=== PATIENT | female | born 1970 | race Caucasian/White ===

== ENCOUNTER 2018-08-06 16:47 | Inpatient (IN) | payer SELFPAY ==
[2018-08-06] MEDS ORDERED: NS 0.9% 1000 ML** 1,000 ML IV ONE ×2 (16:58→17:10)
--- NOTE | 2018-08-06 17:13 | ED ---
HPI Diabetic - HPI Summary HPI Summary: Patient is a 48 y/o female who presents to the ED c/o dizziness. She had two teeth pulled on 07/28/18 because they were infected, and was started on Amoxicillin 3 days ago. For the past week patient c/o nausea, FISHER, palpitations, near-syncope, room-spinning dizziness, mouth pain, throat swelling, fever, SOB, and polyuria. Patient denies any vomiting or CP. Her FISHER has now resolved. Her pain is rated a 7/10 in severity and is described as aching. Patient is a diabetic and her BG yesterday was 600. She states she doesnt check her BG and guesses the dose of Lantus that she takes. She last took Insulin today at 12: 00. Patient is a smoker. - History Of Current Complaint Chief Complaint: EDDizziness Time Seen by Provider: 08/06/18 16:57 Hx Obtained From: Patient Onset/Duration: Gradual Onset, Lasting Weeks - 1, Still Present Timing: Constant Severity Currently: Moderate - 7/10 Aggravating: Non-compliant - does not check BG, takes random amounts of Lantus Alleviating: Nothing Associated Signs & Symptoms: Fever, Nausea, Polyuria, Shortness of Breath - Allergies/Home Medications Allergies/Adverse Reactions: Allergies Allergy/AdvReac Type Severity Reaction Status Date / Time No Known Allergies Allergy Verified 08/06/18 16:48 Home Medications: Home Medications FLUoxetine CAP* [PROzac CAP*] 40 mg PO QPM 08/06/18 [History Confirmed 08/06/18] Insulin ISOPH/REG 70/30 (*) [HumuLIN 70/30 (*)] 10 units SUBCUT QAM 08/06/18 [ History Confirmed 08/06/18] Insulin ISOPH/REG 70/30 (*) [HumuLIN 70/30 (*)] 12 units SUBCUT QPM 08/06/18 [ History Confirmed 08/06/18] risperiDONE TAB* [RisperDAL*] 1 mg PO QPM 08/06/18 [History Confirmed 08/06/18] PMH/Surg Hx/FS Hx/Imm Hx Endocrine/Hematology History: Reports: Hx Diabetes Psychiatric History: Reports: Hx Anxiety, Hx Depression Infectious Disease History: No Infectious Disease History: Denies: Traveled Outside the [place] in Last 30 Days - Family History Known Family History: Positive: Other - R&NC - Social History Alcohol Use: None Hx Substance Use: No Substance Use Type: Reports: None Hx Tobacco Use: Yes Smoking Status (MU): Heavy Every Day Tobacco Smoker Review of Systems Positive: Fever Positive: Other - mouth pain, throat swelling Positive: Palpitations. Negative: Chest Pain Positive: Shortness Of Breath Positive: Nausea. Negative: Vomiting Positive: other - polyuria Neurological: Other - room-spinning dizziness Positive: Headache - resolved, Syncope - near All Other Systems Reviewed And Are Negative: Yes Physical Exam - Summary Physical Exam Summary: Appearance: Well appearing, mild pain distress Skin: warm, dry, reflects adequate perfusion Head/face: normal Eyes: EOMI, TALHA ENT: mucous membranes moist, first left upper molar blackened, left upper pre- molar and second molar pulled, pre-molar site healed, second molar site nearly healed Neck: supple, non-tender Respiratory: breath sounds present, mild expiratory wheezes Cardiovascular: RRR, pulses symmetrical Abdomen: non-tender, soft Bowel Sounds: present Musculoskeletal: normal, strength/ROM intact Neuro: normal, sensory motor intact, A&Ox3 Triage Information Reviewed: Yes Vital Signs On Initial Exam: Initial Vitals Temp Pulse Resp BP Pulse Ox 98.7 F 95 18 154/74 91 08/06/18 16:48 08/06/18 16:48 08/06/18 16:48 08/06/18 16:48 08/06/18 16:48 Vital Signs Reviewed: Yes Diagnostics - Vital Signs Vital Signs Temp Pulse Resp BP Pulse Ox 08/06/18 17:06 92 147/75 96 08/06/18 17:03 92 89 08/06/18 16:48 98.7 F 95 18 154/74 91 - Laboratory Result Diagrams: 08/06/18 17:11 08/06/18 17:11 Lab Statement: Any lab studies that have been ordered have been reviewed, and results considered in the medical decision making process. - Radiology CXR Radiology Interpretation Completed By: ED Physician Summary of Radiographic Findings: No acute disease. Pending official radiology report. - EKG 17:50 Cardiac Rate: NL - 92 bpm EKG Rhythm: Sinus Rhythm ST Segment: Non-Specific Summary of EKG Findings: Nl axis, poor R wave progression Re-Evaluation - Re-Evaluation First Eval Re-Evaluation Time: 19:00 Change: Improved Comment: Feeling a little better. O2 sats in mid-80s when ambulating. Diabetic Course/Dx - Course Course Of Treatment: Nurse's notes reviewed. Patient presents with generalized malaise and recent dental procedure. She has also had blood sugars around 600 but is poorly compliant with checking them. She does not even know her dose of insulin. Her sugar here is 305. She was given IV hydration and was feeling somewhat better. She walked to the restroom and was found to have walking O2 saturations in the low 80s. She is requiring 2 L of oxygen and 1 at baseline she wears none. Her VBG shows a PCO2 in the 60s with PO2 in the 50s. She was given steroids and breathing treatments with some improvement will be admitted for her hypoxia. - Diagnoses Differential Dx: Acute [place], Diabetic Ketoacidosis, Hyperglycemia, Hyperosmolar State, Pneumonia, Sepsis Provider Diagnoses: Hypoxia, Diabetic hypoglycemia, COPD exacerbation - Physician Notifications Discussed Care Of Patient With: Maya Rivas Time Discussed With Above Provider: 19:37 Instructed by Provider To: Admit As Inpatient - Critical Care Time Critical Care Time: 30-74 min - Critical care time is exclusive of separately billable procedures Discharge - Sign-Out/Discharge Documenting (check all that apply): Patient Departure - admit Patient Received Moderate/Deep Sedation with Procedure: No - Discharge Plan Condition: Stable Disposition: ADMITTED TO [facility] Referrals: No Primary Care Phys,NOPCP [Primary Care Provider] - - Billing Disposition and Condition Condition: STABLE Disposition: Admitted to [facility] - Attestation Statements Document Initiated by Scribe: Yes Documenting Scribe: Sonya Bolden Provider For Whom Rosanne is Documenting (Include Credential): Raf Good MD Scribe Attestation: Sonya Montero, scribed for Raf Good MD on 08/06/18 at 2127. Scribe Documentation Reviewed: Yes Provider Attestation: The documentation as recorded by the Sonya dodge accurately reflects the service I personally performed and the decisions made by me, Raf Good MD Status of Scribe Document: Viewed
[2018-08-06] MEDS ORDERED: Ondansetron INJ* 2 MG/ML VIAL IV ONE (17:14)
[2018-08-06 17:18] LABS: Hematocrit 55 % (36-46); Hemoglobin 18.2 g/dL (14.0-18.0); Mean Corpuscular HGB Conc 33 g/dL (31-36); Mean Corpuscular Hemoglobin 33 pg (27-31); Mean Corpuscular Volume 99 fL (80-94); Mean Platelet Volume 10.7 fL (7.4-10.4); Platelet Count 223 10^3/uL (150-450); Red Blood Count 5.55 10^6 /uL (4.18-5.48); Red Cell Distribution Width 13 % (10.5-15); White Blood Count 7.6 10^3/uL (3.5-10.8)
[2018-08-06 17:37] LABS: Albumin 4.2 g/dL (3.2-5.2); Albumin/Globulin Ratio 1.3 (1-3); C Reactive Protein 1.64 mg/L (<8.01); Calcium 9.5 mg/dL (8.6-10.3); EGFR African American 129.4 (>60); EGFR Non-African American 106.9 (>60); Globulin 3.2 g/dL (2-4); Potassium 4.7 mmol/L (3.5-5.0); Total Protein 7.4 g/dL (6.4-8.9)
[2018-08-06 17:40] LABS: ABS Basophils 0 10^3/ul (0-0.2); ABS Eosinophils 0.1 10^3/ul (0-0.6); ABS Lymphocytes 1.1 10^3/ul (1.0-4.8); ABS Monocytes 0.4 10^3/ul (0-0.8); ABS Neutrophils 5.9 10^3/ul (1.5-7.7); ABS Nucleated RBC 0 10^3/ul; Eosinophil % 1.6 %; Nucleated Red Blood Cells % 0
[2018-08-06] MEDS ORDERED: methylPREDNISolone 125 MG* 2 ML VIAL IV ONE (19:26)
[2018-08-06] MEDS ORDERED: Albuterol/Ipratropium NEB.SOL* Albuterol 2.5 MG/Ipratropium 0.5 MG 3 ML INH ONE (19:26)
[2018-08-06 19:38] LABS: Urine Appearance Clear; Urine Bacteria Absent (Absent); Urine Bilirubin Negative (Negative); Urine Blood 1+ (Negative); Urine Color Yellow; Urine Glucose 3+(>=500 mg/dL) (Negative); Urine Ketones Negative (Negative); Urine Nitrite Negative (Negative); Urine Protein Negative (Negative); Urine Red Blood Cell Trace(0-2/hpf) (Absent); Urine Specific Gravity 1.003 (1.010-1.030); Urine Squamous Epithelial Cell Present (Absent); Urine Urobilinogen Negative (Negative); Urine White Blood Cell Trace(0-5/hpf) (Absent)
[2018-08-06] MEDS ORDERED: Acetaminophen TAB* 325 MG PO PRN (20:25)
[2018-08-06] MEDS ORDERED: Al Hydrox/Mg Hydrox/Simet LIQ* 30 ML UDC PO PRN (20:25)
[2018-08-06] MEDS ORDERED: Albuterol/Ipratropium NEB.SOL* Albuterol 2.5 MG/Ipratropium 0.5 MG 3 ML INH PRN (20:25)
[2018-08-06] MEDS ORDERED: Ondansetron INJ* 2 MG/ML VIAL IV PRN (20:25)
[2018-08-06] MEDS ORDERED: Albuterol HFA INHALER* 8 gm MDI INH PRN (20:28)
[2018-08-06] MEDS ORDERED: Nicotine Inhaler* 10 MG AMP INH PRN (20:45)
[2018-08-06] MEDS: Mometasone/Formoter 200/5 MDI INH SCH (21:00)
[2018-08-06] MEDS ORDERED: Mouth Piece, Nicotine* 1 EACH CARTRIDGE INH ONE (22:00)
[2018-08-06] MEDS: NS 0.9% 1000 ML** 1,000 ML IV SCH (22:28)
--- NOTE | 2018-08-06 22:35 | HP ---
CC: [facility] * HISTORY AND PHYSICAL: DATE OF ADMISSION: 08/06/18 TIME OF EVALUATION: 1999. PRIMARY CARE PHYSICIAN: [facility] in [place]. CHIEF COMPLAINT: Concern for septic shock. HISTORY OF PRESENT ILLNESS: This is a 48-year-old female with a past medical history of diabetes and depression who presented to the emergency room with concern for sepsis. The patient states that she had her teeth pulled on 07/28/18, two of her teeth pulled that were infected and she did not get started on antibiotics until 08/03/18. She has been started on amoxicillin every 6 hours for 7 days. She states her mouth does feel about the same, maybe slightly better. She also noticed that her sugar was elevated, greater than 600 yesterday, and she was feeling warm. No documented temperature. The states she is also menopausal, so she does get periods where she does feel warm. She has been nauseated. She had 5 to 6 episodes of diarrhea today. No abdominal pain. No rash. No chest pain. She has a new productive cough. She states she is always short of breath. She has been short of breath for years. It has not been worse. She does smoke a pack per day for the past 36 years. She has never used inhalers or nebulizers in the past, never required oxygen or seen a plant attendant. In the emergency room , the patient had labs, imaging. She was given 2 L of fluids, 4 mg of Zofran, Solu-Medrol 125, and 2 DuoNebs and was referred to the hospitalist service for further evaluation when she was noted to have oxygen saturation of 87% on room air. PAST MEDICAL HISTORY: 1. Depression. 2. Diabetes, on insulin. 3. Tobacco use. MEDICATIONS: 1. Prozac 40 mg daily. 2. Risperdal 1 mg p.o. in the evening. 3. Humulin 12 units in the evening, 10 units in the morning. 4. Amoxicillin 500 mg every 6 hours for 7 days, started on 08/03/18, completed on 08/09/18. ALLERGIES: No known drug allergies. FAMILY HISTORY: Her mother is alive with heart condition. Her father is at age 65 from bladder cancer. SOCIAL HISTORY: The patient has been smoking a pack per day for the past 36 years. No alcohol use. She lives at home with her and her son. Her is her healthcare proxy. She is unemployed. Code status, full code. REVIEW OF SYSTEMS: A 14-point review of systems is as mentioned in the HPI; otherwise, negative. PHYSICAL EXAMINATION GENERAL: In no acute distress, older than stated age. Her and her son are at the bedside. VITAL SIGNS: T-max 98.7, pulse rate 87, respiratory rate 14, oxygen saturation 96% on 2 L, blood pressure 133/80. HEENT: Head: Normocephalic. She does have some eyelid asymmetry. Pupils are equal and reactive. Mildly injected conjunctivae. Oropharynx: Mucous membranes are moist. No erythema or exudate. She does have poor dentition with no significant erythema or edema around the sites where her teeth are pulled. NECK: Supple. No lymphadenopathy. RESPIRATORY: Diminished breath sounds. Prolonged expiratory phase. Scattered faint expiratory wheezing. CARDIAC: Regular rate and rhythm. Soft systolic murmur heard throughout. ABDOMEN: Soft, nontender, nondistended. EXTREMITIES: No clubbing, cyanosis, or edema; +1 DPs. NEUROLOGIC: Alert and oriented x3. No gross focal neurologic deficits. DIAGNOSTIC STUDIES/LAB DATA: Laboratory Data: White count 7.6, hemoglobin 18.2, hematocrit 55, platelets 223. VBG, pH 7.39. Sodium 131, potassium 4.7, chloride 96, bicarb 30, BUN 10, creatinine 0.77, glucose 300. Lactic 1.1. Troponin is 0. CRP is 1.64. UA shows +1 blood, squamous cells present, +3 glucose, no ketones. Chest x-ray shows flattened diaphragm with no significant infiltrate. EKG is normal sinus rhythm with a rate of 92. ASSESSMENT AND PLAN: This is a 48-year-old female with past medical history of tobacco abuse and diabetes, who recently had her teeth pulled, who presented for concern for septic shock. 1. Hypoxia. Assessment: The patient to be clear is not in septic shock. There does not seem to be any significant infection from her teeth pulling, but she is noted to be hypoxic. I suspect this is chronic and she has been hypoxic for years due to her tobacco abuse and underlying undiagnosed chronic obstructive pulmonary disease. We discussed that she needs to start an inhaler regimen and follow up with an outpatient plant attendant. I do not think this is an exacerbation and does not appear to have a secondary infection. Plan: We will admit her overnight for observation as she may need to be discharged home with oxygen. Start her on albuterol nebs, albuterol inhaler, and Dulera and have Respiratory do inhaler teaching for her and she will need oxygen testing prior to discharge. Recommend outpatient followup with Dr. Best. 2. Elevated hemoglobin and hematocrit. Assessment: I do not have labs to compare to, to see if this is underlying polycythemia. This could be hemoconcentrated. We will continue her on fluids and repeat labs in the morning to rule out polycythemia. 3. Diabetes. Assessment: Elevated sugar. On arrival, she does not have any presentation of hyperglycemic hyperosmolar nonketotic coma. We will continue her Humulin and lispro to cover her and check hemoglobin A1c. 4. Recent dental infection. There do not seem to be significant findings of infection. We will continue her on amoxicillin as prescribed. 5. Depression. Continue her Prozac and Risperdal. 6. Tobacco use. We will place her on a nicotine inhaler. 7. FEN. We will place her on a diabetic diet and with gentle IV fluids. 8. DVT prophylaxis. The patient scores moderate risk. We will place her on heparin subcu t.i.d. 9. Code status. Full code. ATIENT TIME: Greater than 45 minutes was spent doing the history and physical, more than half the time spent in direct patient contact. [id number]/CPS #: [id number] KATELYNN
[2018-08-06] MEDS: Insulin LISPRO* 1 UNITS UNIT SUBCUT SCH (23:19)
[2018-08-06] MEDS: risperiDONE TAB* 1 MG PO SCH (23:19)
[2018-08-06] MEDS: Amoxicillin PO (*) 500 MG CAP PO SCH (23:19)
[2018-08-06] MEDS: Heparin VIAL(*) 5000 UNITS/ML VIAL (FIVE THOUSAND) SUBCUT SCH (23:20)
[2018-08-06] MEDS: Insulin ISOPH/REG 70/30 (*) 1 UNITS UNIT SUBCUT SCH (23:20)
[2018-08-06] MEDS: FLUoxetine CAP* 20 MG PO SCH (23:24)
[2018-08-07] MEDS: Heparin VIAL(*) 5000 UNITS/ML VIAL (FIVE THOUSAND) SUBCUT SCH ×2 (05:46→14:21)
[2018-08-07 07:07] LABS: Hematocrit 47 % (33-41); Mean Corpuscular HGB Conc 34 g/dL (31-36); Mean Corpuscular Hemoglobin 33 pg (27-31); Mean Corpuscular Volume 98 fL (80-97); Mean Platelet Volume 10.9 fL (7.4-10.4); Platelet Count 190 10^3/uL (150-450); Red Blood Count 4.81 10^6 /uL (3.70-4.87); Red Cell Distribution Width 13 % (10.5-15); White Blood Count 7.9 10^3/uL (3.5-10.8)
[2018-08-07 07:31] LABS: BUN/Creatinine Ratio 14.5 (8-20); Calcium 8.4 mg/dL (8.6-10.3); EGFR African American 141.6 (>60); Potassium 4.7 mmol/L (3.5-5.0)
[2018-08-07 07:51] LABS: ABS Basophils 0 10^3/ul (0-0.2); ABS Eosinophils 0 10^3/ul (0-0.6); ABS Lymphocytes 0.7 10^3/ul (1.0-4.8); ABS Monocytes 0.1 10^3/ul (0-0.8); ABS Nucleated RBC 0 10^3/ul; Eosinophil % 0 %; Nucleated Red Blood Cells % 0
[2018-08-07] MEDS: Mometasone/Formoter 200/5 MDI INH SCH ×2 (08:04→20:17)
[2018-08-07] MEDS: Amoxicillin PO (*) 500 MG CAP PO SCH ×4 (09:39→21:58)
[2018-08-07] MEDS: NS 0.9% 1000 ML** 1,000 ML IV SCH (09:39)
[2018-08-07] MEDS: Insulin LISPRO* 1 UNITS UNIT SUBCUT SCH ×3 (09:39→18:40)
[2018-08-07] MEDS: Insulin ISOPH/REG 70/30 (*) 1 UNITS UNIT SUBCUT SCH ×2 (09:40→21:59)
[2018-08-07] MEDS ORDERED: clonazePAM TAB(*) 0.5 MG PO ONE (14:24)
[2018-08-07] MEDS ORDERED: FLUoxetine CAP* 20 MG PO SCH (18:00)
[2018-08-07] MEDS: FLUoxetine CAP* 20 MG PO SCH (18:41)
[2018-08-07] MEDS: risperiDONE TAB* 1 MG PO SCH (18:41)
--- NOTE | 2018-08-07 21:13 | PN ---
Subjective Interval History: Admitted last night. Breathing significantly improved from before. When asked about her baseline of health, it appears that patient has been experiencing dyspnea and fatigue for quite some time. Objective Active Medications: Acetaminophen (Tylenol Tab*) 650 mg PO Q4H PRN PRN Reason: FEVER/PAIN Al Hydrox/Mg Hydrox/Simethicone (Maalox Plus*) 30 ml PO Q6H PRN PRN Reason: INDIGESTION Albuterol (Ventolin Hfa Inhaler*) 2 puff INH Q4H PRN PRN Reason: SOB/WHEEZING Amoxicillin (Amoxicillin Po (*)) 500 mg PO QID [facility] Last Admin: 08/07/18 18:41 Dose: 500 mg Device (Tiotropium Inhaler Device*) 1 each INH .USE w/ SPIRIVA CAPS [facility] Dextrose (D50w Syringe 50 Ml*) 12.5 gm IV PUSH .FOR FS < 60 - SS PRN PRN Reason: FS < 60 Enoxaparin Sodium (Lovenox(*)) 40 mg SUBCUT Q24H [facility] Fluoxetine HCl (Prozac Cap*) 40 mg PO QPM [facility] Last Admin: 08/07/18 18:41 Dose: 40 mg Insulin Human Isoph/Insulin Regular (Humulin 70/30 (*)) 10 units SUBCUT 0800 [facility] Last Admin: 08/07/18 09:40 Dose: 10 units Insulin Human Isoph/Insulin Regular (Humulin 70/30 (*)) 12 units SUBCUT 2100 [facility] Last Admin: 08/06/18 23:20 Dose: 12 units Insulin Human Lispro (Humalog*) 0 units SUBCUT AC [facility]; Protocol Last Admin: 08/07/18 18:40 Dose: Not Given Nicotine (Nicotine Inhaler*) 10 mg INH Q2H PRN PRN Reason: CRAVING Last Admin: 08/06/18 23:21 Dose: 10 mg Ondansetron HCl (Zofran Inj*) 4 mg IV Q4H PRN PRN Reason: NAUSEA/VOMITING Risperidone (Risperdal*) 1 mg PO QPM [facility] Last Admin: 08/07/18 18:41 Dose: 1 mg Tiotropium [place] (Spiriva Cap.Inh*) 1 cap INH DAILY [facility] Vital Signs - 8 hr 08/07/18 08/07/18 08/07/18 13:13 15:18 19:41 Temperature 98.4 F 97.9 F 98.1 F Pulse Rate 89 94 87 Respiratory 24 20 22 Rate Blood Pressure 124/52 129/55 129/56 (mmHg) O2 Sat by Pulse 91 94 93 Oximetry 08/07/18 08/07/18 19:48 20:20 Temperature Pulse Rate 93 Respiratory 22 14 Rate Blood Pressure (mmHg) O2 Sat by Pulse 93 Oximetry Oxygen Devices in Use Now: Nasal Cannula Appearance: anxious, tearful Ears/Nose/Mouth/Throat: Mucous Membranes Moist Respiratory: - - mild expiratory wheeze diffusely, no rhonchi/crackles Cardiovascular: RRR Abdominal: NL Sounds; No Tenderness; No Distention Extremities: No Edema Result Diagrams: 08/07/18 06:50 08/07/18 06:50 Microbiology and Other Data: Microbiology 08/06/18 17:25 Aerobic Blood Culture - Preliminary Blood Venous No Growth Day 1 Anaerobic Blood Culture - Preliminary No Growth Day 1 08/06/18 17:10 Aerobic Blood Culture - Preliminary Blood Venous No Growth Day 1 Anaerobic Blood Culture - Preliminary No Growth Day 1 08/06/18 16:58 Urine Culture - Final Urine No Growth (<1,000 CFU/mL) Assess/Plan/Problems-Billing Assessment: 48W with significant smoking history, type 1 diabetes on insulin, and depression , presents with chronic dyspnea and cough. Likely with undiagnosed COPD, now on treatment and better, but pending safest discharge plan given that patient is uninsured. - Patient Problems (1) COPD (chronic obstructive pulmonary disease) Comment: Likely with severe symptoms but undiagnosed for years due to avoiding healthcare given uninsured. - can transition to albuterol inhaler prn - teaching by RT - switch duonebs to tiotropium inhaler - wean O2 if able - pending insurance vs meds covered by [employer] cheap meds list - goal SaO2 is 88-92% (2) Tobacco abuse Comment: - pt states she'll never smoke again, declines NRT - educated family (3) Type 1 diabetes Comment: - cont basal insulin with sliding scale (4) Depression Comment: - cont home SSRI and risperidone - s/p 1 dose of benzo given significant anxiety in hospital (5) DVT prophylaxis Comment: switch to lovenox Status and Disposition: Inpatient while requiring oxygen. If pt to go home on O2, will have to find means of covering cost.
[2018-08-07] MEDS ORDERED: Spiriva Inhaler DEVICE* 1 EACH DEVICE INH SCH (22:00)
[2018-08-07] MEDS: Enoxaparin(*) 40 MG/0.4 ML SYR SUBCUT SCH (22:57)
[2018-08-08] MEDS: Tiotropium CAP.INH* CAP.INH/18 MCG (USE ORDER SET !) INH SCH (08:16)
[2018-08-08] MEDS: Insulin LISPRO* 1 UNITS UNIT SUBCUT SCH ×5 (09:20→22:00)
[2018-08-08] MEDS: Insulin ISOPH/REG 70/30 (*) 1 UNITS UNIT SUBCUT SCH (09:20)
[2018-08-08] MEDS: Amoxicillin PO (*) 500 MG CAP PO SCH ×4 (09:21→23:01)
[2018-08-08] MEDS ORDERED: NS 0.9% 1000 ML** 1,000 ML IV ONE (12:44)
[2018-08-08] MEDS ORDERED: Insulin LISPRO* 1 UNITS UNIT SUBCUT ONE ×2 (12:44→13:32)
--- NOTE | 2018-08-08 16:17 | PN ---
Subjective Interval History: Issues with glucose control today - required extra doses of short acting insulin a 1 L IVF. Pt reports feeling better. She learned how to use inhalers today from RT. Still unable to wean O2 at rest. Waiting to walk with RN for ambulatory O2. Yesterday maintained 89% on 2L while walking. Pt nervous and asking if she needs to get rid of her cats for her breathing. Discussed that COPD is not allergy mediated and that cats are fine. Humidity might be an issue - she nods and reports she mostly has a hard time with hot showers. Objective Active Medications: Albuterol (Ventolin Hfa Inhaler*) 2 puff INH Q4H PRN PRN Reason: SOB/WHEEZING Last Admin: 08/08/18 08:16 Dose: 2 puff Amoxicillin (Amoxicillin Po (*)) 500 mg PO QID [facility] Device (Tiotropium Inhaler Device*) 1 each INH .USE w/ SPIRIVA CAPS [facility] Dextrose (D50w Syringe 50 Ml*) 12.5 gm IV PUSH .FOR FS < 60 - SS PRN PRN Reason: FS < 60 Enoxaparin Sodium (Lovenox(*)) 40 mg SUBCUT Q24H [facility] Last Admin: 08/07/18 22:57 Dose: 40 mg Fluoxetine HCl (Prozac Cap*) 40 mg PO QPM [facility] Last Admin: 08/07/18 18:41 Dose: 40 mg Insulin Glargine (Lantus(*)) 20 units SUBCUT BEDTIME [facility] Insulin Human Lispro (Humalog*) 0 units SUBCUT AC [facility]; Protocol Insulin Human Lispro (Humalog*) 0 units SUBCUT ACHS [facility]; Protocol Nicotine (Nicotine Inhaler*) 10 mg INH Q2H PRN PRN Reason: CRAVING Last Admin: 08/06/18 23:21 Dose: 10 mg Risperidone (Risperdal*) 1 mg PO QPM [facility] Last Admin: 08/07/18 18:41 Dose: 1 mg Tiotropium [place] (Spiriva Cap.Inh*) 1 cap INH DAILY [facility] Last Admin: 08/08/18 08:16 Dose: 1 cap Vital Signs - 8 hr 08/08/18 08/08/18 08:21 11:14 Temperature 97.3 F Pulse Rate 83 79 Respiratory 16 20 Rate Blood Pressure 149/66 (mmHg) O2 Sat by Pulse 93 94 Oximetry Oxygen Devices in Use Now: Nasal Cannula - 1L Appearance: anxious, thin Ears/Nose/Mouth/Throat: Clear Oropharnyx Respiratory: Clear to Auscultation Cardiovascular: RRR Abdominal: NL Sounds; No Tenderness; No Distention, No Hepatosplenomegaly Extremities: No Edema Result Diagrams: 08/07/18 06:50 08/07/18 06:50 Assess/Plan/Problems-Billing 48W with significant smoking history, type 1 diabetes on insulin, and depression , presents with chronic dyspnea and cough. Likely with undiagnosed COPD, now on treatment and better, but pending safest discharge plan given that patient is uninsured. - Patient Problems (1) COPD (chronic obstructive pulmonary disease) Comment: Likely with severe symptoms but undiagnosed for years due to avoiding healthcare given uninsured. Unfortunately, if pt is unable to acquire insurance , medical therapies are very limited for COPD - see below: - while admitted, Spiriva daily with albuterol MDI prn, teaching done by RT - seems an albuterol inhaler is approximately $30 (if using coupon from [employer]) - only albuterol tablets are covered by [employer] $4 list, which is not preferred therapy - the only LAMA/anticholinergic inhaled medication on [employer] list is ipratropium nebulizer, so likely rx on discharge but is not ideal given frequent dosing and not portable (Incruse Ellipta and Spiriva are hundreds of dollars per inhaler) - wean O2 if able, goal SaO2 is 88-92% - pending insurance vs meds covered by [employer] cheap meds list (2) Tobacco abuse Comment: - pt states she'll never smoke again, declines NRT - educated family (3) Type 1 diabetes Comment: Unable to acquire affordable insulin given recent issues with insulin market/regulation - therefore patient has been stretching her home insulin vial. Also, pt was on 70/30, which is not ideal for type 1 diabetes. Ideally should be on basal/prandial or pump (cost). - cont basal insulin with sliding scale - low carb diet (4) Depression Comment: - cont home SSRI and risperidone - s/p 1 dose of benzo given significant anxiety in hospital (5) DVT prophylaxis Comment: switch to lovenox Status and Disposition: Inpatient while requiring oxygen. If pt to go home on O2, will have to find means of covering cost.
[2018-08-08] MEDS: risperiDONE TAB* 1 MG PO SCH (17:49)
[2018-08-08] MEDS: FLUoxetine CAP* 20 MG PO SCH (17:49)
[2018-08-08] MEDS ORDERED: Insulin GLARGINE(*) 1 UNITS UNIT SUBCUT SCH ×2 (21:00→23:00)
[2018-08-08] MEDS: Dextrose 50% Syringe 50 ML* 25 GM/50 ML SYRINGE IV PUSH PRN (22:05)
[2018-08-08] MEDS: Enoxaparin(*) 40 MG/0.4 ML SYR SUBCUT SCH (23:01)
[2018-08-09] MEDS: Tiotropium CAP.INH* CAP.INH/18 MCG (USE ORDER SET !) INH SCH (08:12)
[2018-08-09] MEDS: Amoxicillin PO (*) 500 MG CAP PO SCH ×4 (09:11→21:03)
[2018-08-09] MEDS: Insulin LISPRO* 1 UNITS UNIT SUBCUT SCH ×7 (09:11→20:55)
--- NOTE | 2018-08-09 09:55 | PN ---
Subjective Date of Service: 08/09/18 Interval History: HOSPITALIST PROGRESS NOTE Patient seen and examined at bedside. Care reviewed and d/w Radha Shi RN. She offers no complaints at this time, states her breathing is close to her baseline, despite still requiring supplemental O2. As per RN note: "Pt O2 tested ambulating and at rest, results: 84% sat ambulating on RA, 91% sat ambulating on 4L O2, 93% sat at rest on RA, 97% sat at rest on 1L O2 via NC". Family History: Unchanged from Admission Social History: Unchanged from Admission Past Medical History: Unchanged from Admission Objective Active Medications: Albuterol (Ventolin Hfa Inhaler*) 2 puff INH Q4H PRN PRN Reason: SOB/WHEEZING Last Admin: 08/08/18 08:16 Dose: 2 puff Amoxicillin (Amoxicillin Po (*)) 500 mg PO QID [facility] Last Admin: 08/09/18 09:11 Dose: 500 mg Device (Tiotropium Inhaler Device*) 1 each INH .USE w/ SPIRIVA CAPS [facility] Dextrose (D50w Syringe 50 Ml*) 12.5 gm IV PUSH .FOR FS < 60 - SS PRN PRN Reason: FS < 60 Last Admin: 08/08/18 22:05 Dose: 12.5 gm Enoxaparin Sodium (Lovenox(*)) 40 mg SUBCUT Q24H [facility] Last Admin: 08/08/18 23:01 Dose: 40 mg Fluoxetine HCl (Prozac Cap*) 40 mg PO QPM [facility] Last Admin: 08/08/18 17:49 Dose: 40 mg Insulin Glargine (Lantus(*)) 15 units SUBCUT BEDTIME [facility] Last Admin: 08/08/18 23:01 Dose: 15 units Insulin Human Lispro (Humalog*) 0 units SUBCUT AC [facility]; Protocol Last Admin: 08/09/18 09:11 Dose: 3 units Insulin Human Lispro (Humalog*) 0 units SUBCUT ACHS [facility]; Protocol Last Admin: 08/09/18 09:11 Dose: 1 unit Nicotine (Nicotine Inhaler*) 10 mg INH Q2H PRN PRN Reason: CRAVING Last Admin: 08/06/18 23:21 Dose: 10 mg Risperidone (Risperdal*) 1 mg PO QPM [facility] Last Admin: 08/08/18 17:49 Dose: 1 mg Tiotropium [place] (Spiriva Cap.Inh*) 1 cap INH DAILY [facility] Last Admin: 08/09/18 08:12 Dose: 1 cap Vital Signs - 8 hr 08/09/18 08/09/18 08/09/18 03:45 03:55 08:15 Temperature 98.4 F 98.4 F Pulse Rate 80 80 81 Respiratory 16 16 16 Rate Blood Pressure 139/64 139/64 (mmHg) O2 Sat by Pulse 96 96 93 Oximetry Oxygen Devices in Use Now: Nasal Cannula Appearance: Middle aged lady sitting up in bed in NAD. Eyes: No Scleral Icterus Ears/Nose/Mouth/Throat: Mucous Membranes Moist Neck: Trachea Midline Respiratory: Symmetrical Chest Expansion and Respiratory Effort, Clear to Auscultation - diminished Cardiovascular: RRR - Normal S1 and S2 Abdominal: NL Sounds; No Tenderness; No Distention Extremities: No Edema, - - No calf tenderness Neurological: Alert and Oriented x 3, NL Muscle Strength and Tone Result Diagrams: 08/07/18 06:50 08/07/18 06:50 Assess/Plan/Problems-Billing Assessment: Mrs Verma is a 48yo F with significant smoking history, type 1 diabetes on insulin, and depression, presents with chronic dyspnea and cough. Likely with undiagnosed COPD, now on treatment and better, but pending safest discharge plan given that patient is uninsured and will require supplemental O2. - Patient Problems (1) COPD (chronic obstructive pulmonary disease) Comment: - Likely with severe symptoms but undiagnosed for years due to avoiding healthcare she's uninsured. - Will talk to CM/SW again about Medicaid application. - Continue bronchodilators. (2) Hypoxemic respiratory failure, chronic Comment: - Likely chronic, as patient has had respiratory issues for some time and feels close to her baseline now, despite supplemental O2 requirements. (3) Type 1 diabetes Comment: - Unable to afford insulin - has been stretching her home insulin vial. - Continue Lantus and Lispro. (4) Depression Comment: - Continue Fluoxetine and Risperidone. (5) DVT prophylaxis Comment: - Lovenox. (6) Full code status Status and Disposition: Inpatient while requiring oxygen. If pt to go home on O2, will have to find means of covering cost.
[2018-08-09] MEDS: risperiDONE TAB* 1 MG PO SCH (17:50)
[2018-08-09] MEDS: FLUoxetine CAP* 20 MG PO SCH (17:50)
[2018-08-09] MEDS: Dextrose 50% Syringe 50 ML* 25 GM/50 ML SYRINGE IV PUSH PRN (20:04)
--- NOTE | 2018-08-09 20:21 | PN ---
Progress Note - Progress Note Date of Service: 08/09/18 Note: Event Note: CAT call due to hypoglycemia. Patient called out she was feeling low, had FS 17. She received D50 1 amp IV and some OJ by mouth prior to arrival. Last night FS was 40 around 10PM, Lantus dose decreased from 20 to 15. This evening had 5 units corrective humalog at dinner, nothing for carb counting. Patient diaphoretic, VSS. She can converse, still feels terrible. Repeat FS 10 minutes later 279. Will reduce evening lantus further, and reduce dose of corrective insulin. Will ask Dr. Caldera to see her tomorrow.
[2018-08-09] MEDS: Insulin GLARGINE(*) 1 UNITS UNIT SUBCUT SCH (21:03)
[2018-08-09] MEDS: Enoxaparin(*) 40 MG/0.4 ML SYR SUBCUT SCH (22:01)
[2018-08-10] MEDS: Insulin LISPRO* 1 UNITS UNIT SUBCUT SCH ×7 (07:44→20:09)
[2018-08-10] MEDS: Tiotropium CAP.INH* CAP.INH/18 MCG (USE ORDER SET !) INH SCH (07:44)
[2018-08-10] MEDS: Amoxicillin PO (*) 500 MG CAP PO SCH ×4 (09:33→19:58)
--- NOTE | 2018-08-10 09:47 | PN ---
Subjective Date of Service: 08/10/18 Interval History: HOSPITALIST PROGRESS NOTE Patient seen and examined at bedside. Care reviewed and d/w Darryl Michel RN. She was hypoglycemia last night, but otherwise feels ok. Breathing is close to baseline. Family History: Unchanged from Admission Social History: Unchanged from Admission Past Medical History: Unchanged from Admission Objective Active Medications: Albuterol (Ventolin Hfa Inhaler*) 2 puff INH Q4H PRN PRN Reason: SOB/WHEEZING Last Admin: 08/08/18 08:16 Dose: 2 puff Amoxicillin (Amoxicillin Po (*)) 500 mg PO QID [facility] Last Admin: 08/10/18 09:33 Dose: 500 mg Device (Tiotropium Inhaler Device*) 1 each INH .USE w/ SPIRIVA CAPS [facility] Dextrose (D50w Syringe 50 Ml*) 12.5 gm IV PUSH .FOR FS < 60 - SS PRN PRN Reason: FS < 60 Last Admin: 08/09/18 20:04 Dose: 12.5 gm Enoxaparin Sodium (Lovenox(*)) 40 mg SUBCUT Q24H [facility] Last Admin: 08/09/18 22:01 Dose: 40 mg Fluoxetine HCl (Prozac Cap*) 40 mg PO QPM [facility] Last Admin: 08/09/18 17:50 Dose: 40 mg Insulin Glargine (Lantus(*)) 10 units SUBCUT BEDTIME [facility] Last Admin: 08/09/18 21:03 Dose: 10 units Insulin Human Lispro (Humalog*) 0 units SUBCUT ACHS [facility]; Protocol Last Admin: 08/10/18 07:44 Dose: Not Given Insulin Human Lispro (Humalog*) 0 units SUBCUT AC [facility]; Protocol Last Admin: 08/10/18 09:34 Dose: 1 unit Nicotine (Nicotine Inhaler*) 10 mg INH Q2H PRN PRN Reason: CRAVING Last Admin: 08/06/18 23:21 Dose: 10 mg Risperidone (Risperdal*) 1 mg PO QPM [facility] Last Admin: 08/09/18 17:50 Dose: 1 mg Tiotropium [place] (Spiriva Cap.Inh*) 1 cap INH DAILY [facility] Last Admin: 08/10/18 07:44 Dose: 1 cap Vital Signs - 8 hr 08/10/18 08/10/18 08/10/18 03:25 07:27 07:36 Temperature 98 F 97.7 F 97.7 F Pulse Rate 84 81 81 Respiratory 16 16 16 Rate Blood Pressure 155/66 121/57 121/57 (mmHg) O2 Sat by Pulse 95 96 95 Oximetry 08/10/18 08/10/18 07:45 08:40 Temperature Pulse Rate 80 Respiratory 14 14 Rate Blood Pressure (mmHg) O2 Sat by Pulse 95 Oximetry Oxygen Devices in Use Now: Nasal Cannula Appearance: Pleasant middle aged lady sitting up in bed in NAD. Eyes: No Scleral Icterus Ears/Nose/Mouth/Throat: Mucous Membranes Moist Neck: Trachea Midline Respiratory: Symmetrical Chest Expansion and Respiratory Effort, Clear to Auscultation - diminished Cardiovascular: RRR - Normal S1 and S2 Neurological: Alert and Oriented x 3, NL Muscle Strength and Tone Result Diagrams: 08/07/18 06:50 08/07/18 06:50 Assess/Plan/Problems-Billing Assessment: Mrs Verma is a 48yo F with significant smoking history, type 1 diabetes on insulin, and depression, presents with chronic dyspnea and cough. Likely with undiagnosed COPD, now on treatment and better, but pending safest discharge plan given that patient is uninsured and will require supplemental O2. - Patient Problems (1) COPD (chronic obstructive pulmonary disease) Comment: - Likely with severe symptoms but undiagnosed for years due to avoiding healthcare as she's uninsured. - Will talk to CM/SW again about Medicaid application. - Continue bronchodilators. (2) Hypoxemic respiratory failure, chronic Comment: - Likely chronic, as patient has had respiratory issues for some time and feels close to her baseline now, despite supplemental O2 requirements. (3) Type 1 diabetes Comment: - Unable to afford insulin - has been stretching her home insulin vial. - Continue Lantus and Lispro - will decrease both doses and request Endocrinology consultation. (4) Depression Comment: - Continue Fluoxetine and Risperidone. (5) DVT prophylaxis Comment: - Lovenox. (6) Full code status Status and Disposition: Inpatient while requiring oxygen. If pt to go home on O2, will have to find means of covering cost.
[2018-08-10] MEDS: risperiDONE TAB* 1 MG PO SCH (17:49)
[2018-08-10] MEDS: FLUoxetine CAP* 20 MG PO SCH (17:49)
[2018-08-10] MEDS: Insulin GLARGINE(*) 1 UNITS UNIT SUBCUT SCH (20:00)
[2018-08-10] MEDS: Enoxaparin(*) 40 MG/0.4 ML SYR SUBCUT SCH (21:51)
[2018-08-11] MEDS: Tiotropium CAP.INH* CAP.INH/18 MCG (USE ORDER SET !) INH SCH (07:48)
--- NOTE | 2018-08-11 07:59 | CONSULT ---
Consult Consult: [facility] Inpatient Consult Note Date of Consult: 08/11/18 Reason for Consult: diabetes Reason for Admission: hypoxia ASSESSMENT: 48 yo F with T1DM, now admitted for severe COPD and acute hypoxia. Her weight-based TDD insulin requirement is approximately 0.5 units/kg/day for a total of 25 units per day. She has been unable to afford insulin analogues and has been using this amount in the form of 70/30 insulin with some success, having achieved an A1c = 8.1% most recently. Her lows this admission are due to excessive correction insulin given in the hours before onset of hypoglycemia. Highs have also occurred this admission when insulin was held. This pattern is typical of insulin-deficient type 1 diabetes. PLAN: - INCREASE glargine to 12 units once daily - START lispro 4 units with meals - hold if BG <70 - may give after a meal - CHANGE lispro sliding scale to - BG 151-200 -- 1 unit - BG 201-250 -- 2 units - BG 251-300 -- 3 units - BG 301-350 -- 4 units - BG 351-400 -- 5 units - BG >400 -- 6 units and call endocrine on page endocrine on-call - Patient may be discharged on above regimen - if patient cannot afford above regimen, Novolin 70/30 12 units BID is an alternative regimen - Follow-up with endocrinology at [facility] in [place] in 3-4 weeks SUBJECTIVE: History of Present Illness: See admission note for details. 48 you with chronic dyspnea presumably secondary to tobacco-related COPD, now admitted with fatigue , worsening dyspnea and concern for systemic infection. She was hypoxic on admission (87% on RA) and has had difficulty maintain O2 sat >94% despite oxygen supplement since then. She was diagnosed with T1DM at age 7 and has been on various forms of insulin replacement since then. No hospitalizations for DKA in many years. 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 Past Medical History: - Mood disorder - Type 1 diabetes - Tobacco use - Presumed COPD Medications Prior to Admission: FLUoxetine CAP* [Prozac CAP*] 40 mg PO QPM 08/06/18 [History Confirmed 08/06/18] Insulin ISOPH/REG 70/30 (*) [HumuLIN 70/30 (*)] 10 units SUBCUT QAM 08/06/18 [ History Confirmed 08/06/18] Insulin ISOPH/REG 70/30 (*) [HumuLIN 70/30 (*)] 12 units SUBCUT QPM 08/06/18 [ History Confirmed 08/06/18] risperiDONE TAB* [Risperdal*] 1 mg PO QPM 08/06/18 [History Confirmed 08/06/18] Albuterol HFA INHALER* [Ventolin HFA Inhaler*] 2 puff INH Q4H PRN #1 mdi [Rx] Amoxicillin PO (*) [Amoxicillin 500 MG CAP*] 500 mg PO Q6H #20 cap 08/09/18 [Rx] Tiotropium CAP.INH* [Spiriva CAP.INH*] 1 cap INH DAILY #30 cap.inh 08/09/18 [Rx] Inpatient Medications: Albuterol (Ventolin Hfa Inhaler*) 2 puff INH Q4H PRN PRN Reason: SOB/WHEEZING Last Admin: 08/08/18 08:16 Dose: 2 puff Amoxicillin (Amoxicillin Po (*)) 500 mg PO QID [facility] Last Admin: 08/10/18 19:58 Dose: 500 mg Device (Tiotropium Inhaler Device*) 1 each INH .USE w/ SPIRIVA CAPS [facility] Dextrose (D50w Syringe 50 Ml*) 12.5 gm IV PUSH .FOR FS < 60 - SS PRN PRN Reason: FS < 60 Last Admin: 08/09/18 20:04 Dose: 12.5 gm Enoxaparin Sodium (Lovenox(*)) 40 mg SUBCUT Q24H [facility] Last Admin: 08/10/18 21:51 Dose: 40 mg Fluoxetine HCl (Prozac Cap*) 40 mg PO QPM [facility] Last Admin: 08/10/18 17:49 Dose: 40 mg Insulin Glargine (Lantus(*)) 10 units SUBCUT BEDTIME [facility] Last Admin: 08/10/18 20:00 Dose: 10 units Insulin Human Lispro (Humalog*) 0 units SUBCUT ACHS [facility]; Protocol Last Admin: 08/10/18 20:09 Dose: 3 unit Insulin Human Lispro (Humalog*) 0 units SUBCUT AC [facility]; Protocol Last Admin: 08/10/18 17:51 Dose: Not Given Nicotine (Nicotine Inhaler*) 10 mg INH Q2H PRN PRN Reason: CRAVING Last Admin: 08/06/18 23:21 Dose: 10 mg Risperidone (Risperdal*) 1 mg PO QPM [facility] Last Admin: 08/10/18 17:49 Dose: 1 mg Tiotropium [place] (Spiriva Cap.Inh*) 1 cap INH DAILY [facility] Last Admin: 08/11/18 07:48 Dose: 1 cap Allergies/Intolerances: NKDA Social History: Lives with and son. Active smoker with >35 PY history. Denies alcohol. Family History: Heart condition, bladder cancer. No diabetes or autoimmune disease. Review of Systems: As above. 10 system review is otherwise normal. OBJECTIVE: Temp Pulse Resp BP Pulse Ox 97.9 F 81 20 121/56 92 08/11/18 07:46 08/11/18 07:46 08/11/18 07:54 08/11/18 07:46 08/11/18 07:46 General: alert, pleasant, oriented, no distress ENT: R eye prosthesis, neck supple, no thyromegaly, no bruit is heard Chest: CTAB, no wheezing or crackles CV: RRR, no murmur Abdomen: soft, non-tender Extremities: no edema, distal pulses intact Skin: warm, dry, no rash Neuro: grossly intact motor/sensory in extremities Psych: restricted affect, pleasant Labs: Glucose Results 08/08/18 07:30 51 0L 08/08/18 11:30 450 20L 08/08/18 16:30 139 5L 08/08/18 19:58 32 0L + 15G 08/09/18 07:30 163 1L 08/09/18 11:30 264 4L 08/09/18 16:30 103 0L 08/09/18 19:58 14 0L + 10G 08/10/18 07:30 128 1L 08/10/18 11:30 231 3L 08/10/18 16:30 78 3L 08/10/18 21:00 293 3L + 10G 08/11/18 07:30 163 WBC 7.9 10^3/uL (3.5-10.8) 08/07/18 06:50 RBC 4.81 10^6 /uL (3.70-4.87) 08/07/18 06:50 Hgb 16.0 g/dL (12.0-16.0) 08/07/18 06:50 Hct 47 % (33-41) H 08/07/18 06:50 MCV 98 fL (80-97) H 08/07/18 06:50 MCH 33 pg (27-31) H 08/07/18 06:50 MCHC 34 g/dL (31-36) 08/07/18 06:50 RDW 13 % (10.5-15) 08/07/18 06:50 Plt Count 190 10^3/uL (150-450) 08/07/18 06:50 MPV 10.9 fL (7.4-10.4) H 08/07/18 06:50 Neut % (Auto) 89.1 % 08/07/18 06:50 Lymph % (Auto) 9.0 % 08/07/18 06:50 [place] % (Auto) 1.6 % 08/07/18 06:50 Eos % (Auto) 0 % 08/07/18 06:50 Baso % (Auto) 0.3 % 08/07/18 06:50 Absolute Neuts (auto) 7.0 10^3/ul (1.5-7.7) 08/07/18 06:50 Absolute Lymphs (auto) 0.7 10^3/ul (1.0-4.8) L 08/07/18 06:50 Absolute Monos (auto) 0.1 10^3/ul (0-0.8) 08/07/18 06:50 Absolute Eos (auto) 0 10^3/ul (0-0.6) 08/07/18 06:50 Absolute Basos (auto) 0 10^3/ul (0-0.2) 08/07/18 06:50 Absolute Nucleated RBC 0 10^3/ul 08/07/18 06:50 Nucleated RBC % 0 08/07/18 06:50 VBG pH 7.39 (7.32-7.43) 08/06/18 17:30 VBG pCO2 61 mmHg (41-51) H 08/06/18 17:30 VBG pO2 < 38.0 mmHg (35-45) 08/06/18 17:30 VBG HCO3 31.0 mmol/L (24-28) H 08/06/18 17:30 VBG O2 Saturation 50.3 % (70-80) L 08/06/18 17:30 VBG Base Excess 9.6 mmol/L (0.0-4.0) H 08/06/18 17:30 Sodium 138 mmol/L (135-145) 08/07/18 06:50 Potassium 4.7 mmol/L (3.5-5.0) 08/07/18 06:50 Chloride 106 mmol/L (101-111) 08/07/18 06:50 Carbon Dioxide 28 mmol/L (22-32) 08/07/18 06:50 Anion Gap 4 mmol/L (2-11) 08/07/18 06:50 BUN 8 mg/dL (6-24) 08/07/18 06:50 Creatinine 0.55 mg/dL (0.51-0.95) 08/07/18 06:50 Est GFR ( Amer) 141.6 (>60) 08/07/18 06:50 Est GFR (Non-Af Amer) 117.0 (>60) 08/07/18 06:50 BUN/Creatinine Ratio 14.5 (8-20) 08/07/18 06:50 Glucose 121 mg/dL (70-100) H 08/07/18 06:50 POC Glucose (mg/dL) 163 mg/dL (70-100) H 08/11/18 07:37 Glucose Meter Confirm 40 mg/dL (70-100) L* 08/08/18 22:07 Hemoglobin A1c 8.1 % (4.0-5.6) H 08/06/18 17:11 Lactic Acid 1.1 mmol/L (0.5-2.0) 08/06/18 17:11 Calcium 8.4 mg/dL (8.6-10.3) L 08/07/18 06:50 Magnesium 2.0 mg/dL (1.9-2.7) 08/06/18 17:11 Total Bilirubin 1.00 mg/dL (0.2-1.0) 08/06/18 17:11 AST 21 U/L (13-39) 08/06/18 17:11 ALT 20 U/L (7-52) 08/06/18 17:11 Alkaline Phosphatase 108 U/L (34-104) H 08/06/18 17:11 Troponin I 0.00 ng/mL (<0.04) 08/06/18 17:11 C-Reactive Protein 1.64 mg/L (<8.01) 08/06/18 17:11 Total Protein 7.4 g/dL (6.4-8.9) 08/06/18 17:11 Albumin 4.2 g/dL (3.2-5.2) 08/06/18 17:11 Globulin 3.2 g/dL (2-4) 08/06/18 17:11 Albumin/Globulin Ratio 1.3 (1-3) 08/06/18 17:11 Urine Color Yellow 08/06/18 16:58 Urine Appearance Clear 08/06/18 16:58 Urine pH 6.0 (5-9) 08/06/18 16:58 Ur Specific [place] 1.003 (1.010-1.030) L 08/06/18 16:58 Urine Protein Negative (Negative) 08/06/18 16:58 Urine Ketones Negative (Negative) 08/06/18 16:58 Urine Blood 1+ (Negative) A 08/06/18 16:58 Urine Nitrate Negative (Negative) 08/06/18 16:58 Urine Bilirubin Negative (Negative) 08/06/18 16:58 Urine Urobilinogen Negative (Negative) 08/06/18 16:58 Ur Leukocyte Esterase Negative (Negative) 08/06/18 16:58 Urine WBC (Auto) Trace(0-5/hpf) (Absent) 08/06/18 16:58 Urine RBC (Auto) Trace(0-2/hpf) (Absent) 08/06/18 16:58 Ur Squamous Epith Cells Present (Absent) A 08/06/18 16:58 Urine Bacteria Absent (Absent) 08/06/18 16:58 Urine Glucose 3+(>=500 mg/dl) (Negative) A 08/06/18 16:58
[2018-08-11] MEDS: Insulin LISPRO* 1 UNITS UNIT SUBCUT SCH ×3 (09:09→13:19)
[2018-08-11] MEDS: Amoxicillin PO (*) 500 MG CAP PO SCH ×2 (09:09→13:19)
[2018-08-11 11:25] VITALS: BP 108/63
[2018-08-11] MEDS ORDERED: Insulin LISPRO* 1 UNITS UNIT SUBCUT SCH (11:30)
[2018-08-11] MEDS ORDERED: Insulin GLARGINE(*) 1 UNITS UNIT SUBCUT SCH (21:00)
--- NOTE | 2018-08-11 23:01 | DS ---
CC: Dr. Qiu; Dr. Nader Caldera.* DISCHARGE SUMMARY: DATE OF ADMISSION: 08/06/18 DATE OF DISCHARGE: 08/11/18 PRIMARY CARE PROVIDER: Dr. Qiu. DISCHARGE DIAGNOSES: 1. Chronic hypoxemic respiratory failure secondary to a newly diagnosed chronic obstructive pulmonary disease. 2. Type 1 diabetes. SECONDARY DIAGNOSIS: Tobacco abuse. MEDICATION LIST: 1. Fluoxetine 40 mg p.o. at bedtime. 2. Risperdal 1 mg p.o. at bedtime. 3. Humulin 70/30, 12 units subcutaneously b.i.d. 4. Spiriva 1 capsule inhaled daily. 5. Doxycycline 100 mg p.o. b.i.d. for 3 more days. 6. Albuterol HFA 2 puffs inhaled q.4 hours p.r.n. shortness of breath. HOSPITAL COURSE: Ms. Verma is a 48-year-old lady with a past medical history as stated above that presented to the emergency room due to a tooth infection. She had noticed that her sugars were elevated and she was concerned with possibility of infection. In the emergency room, she was found to be hypoxic with oxygen saturation of 87% on room air, although she was not particularly short of breath. She was admitted for further evaluation and workup. Chest x-ray showed no acute pulmonary disease. The impression was that the patient likely had undiagnosed COPD as she is a smoker for more than 30 years and has been avoiding health care because she does not have insurance. She did endorse long-term exertional shortness of breath, but this has been unchanged, so we suspect that she was likely hypoxic for a long time. Regarding her diabetes, the patient was seen in consultation by Endocrinology ( Dr. Nader Caldera) and his recommendation was for a regimen that would include Lantus 12 units once a day with lispro 4 units with meals and also sliding scale , but as the patient does not have insurance, at this point she cannot afford it , so she will be continued on her Novolin 70/30 12 units b.i.d. as an alternative regimen and she will follow up in [place], and hopefully at that point, her Medicaid application will have been approved and she would then be insured. The patient requires oxygen to maintain her oxygen saturation above 90. She needs 1 L at rest and 4 L with exertion. The patient states that she will no longer smoke and she declines nicotine supplementation and does not think she will need any further assistance. She will need evaluation by Pulmonology as outpatient with spirometry to confirm this diagnosis of COPD. The patient is medically stable for discharge at this time to follow up as outpatient. She will transfer her care now to [facility] in [place]. PHYSICAL EXAMINATION: Vital Signs: Temperature 97.7, heart rate is 88, respiratory rate is 20, oxygen saturation is 95% on 1 L, blood pressure is 108/ 63. General: The patient is a pleasant middle-aged lady, sitting up in bed, in no acute distress. CVS: Normal S1 and S2. Regular rate and rhythm. Chest: Breath sounds bilaterally diminished with no added sounds. Abdomen: Soft, bowel sounds are present. Neuro: She is alert and oriented x3, able to move all 4 extremities. DIET: Consistent carb diet. ACTIVITIES: As tolerated. DISPOSITION: To home. STATUS WHILE IN THE HOSPITAL: Inpatient. CONDITION AT THE TIME OF DISCHARGE: Fair. Please keep in mind this is a summarized version of this patient's hospital stay. If you need more information, please feel free to call me at [phone] or please obtain the full medical record. TIME SPENT: Approximately 45 minutes was spent on this discharge. [id number]/CPS #: [id number] KATELYNN
== END 2018-08-11 15:15 | disposition home or self-care (01) | DRG 191 ==
LOC: EDSEX → ED 16:47 → MED 20:25 → OBSVTOIN 08-08 18:50
PROVIDERS: ADMIT Pediatrics; ATTEND Internal Medicine
DX: J44.9 Chronic obstructive pulmonary disease, unspecified (principal); J96.11 Chronic respiratory failure with hypoxia; F41.9 Anxiety disorder, unspecified; F32.9 Major depressive disorder, single episode, unspecified; D58.2 Other hemoglobinopathies; Z99.81 Dependence on supplemental oxygen; E10.649 Type 1 diabetes mellitus with hypoglycemia without coma; F17.210 Nicotine dependence, cigarettes, uncomplicated; Z82.49 Family history of ischemic heart disease and other diseases of the circulatory system; Z80.52 Family history of malignant neoplasm of bladder; Z56.0 Unemployment, unspecified; Z79.4 Long term (current) use of insulin; Z59.9 Problem related to housing and economic circumstances, unspecified; Z91.19 Patient's noncompliance with other medical treatment and regimen
CPT/HCPCS: 36415; 71046; 80048; 80053; 81003; 81015; 82803; 82947; 83036; 83605; 83735; 84484; 85025; 86140; 87040; 87086; 93005; 94640; 99284; 99406; A9270-GY; G0378; J1644; J1650; J2405; J2930